=== PATIENT | male | born 1955 | race Caucasian/White ===

== ENCOUNTER 2023-10-21 09:03 | Emergency (ER) | payer MEDICARE, OTHER, SELFPAY ==
[2023-10-21] VITALS (8 sets, daily range): BP systolic 118–175; BP diastolic 77–94
--- NOTE | 2023-10-21 09:30 | ED.GENMED ---
Addendum entered and electronically signed by Tremaine Lazo PA-C 10/23/23 09:16:
Patient's initial Lyme titers was presumed positive. Western blot being performed. I contacted the patient and patient notes that he has never been treated for Lyme's disease in the past and continues to have body aches and a vague set of
symptoms. We discussed risk versus benefit of initiating antibiotics and at this time patient would ultimately like to start the antibiotic prior to the Western blot test being performed. Prescription for doxycycline 100 mg tablets x 14 days sent
to patient's [facility] pharmacy in [place]. He will follow-up with his primary care provider.
Original Note:
History of Present Illness
<Padmini Vaz PA-C - Last Filed: 10/21/23 14:58>
General
Chief Complaint: Blood Pressure Problem
Source: patient
Exam Limitations: none
Time Seen by Provider: 10/21/23 09:29
Nursing documentation reviewed up to this point in time: agreed with
Travel History
Have you had any contact with someone who has COVID-19?: No
Do you have any symptoms of coronavirus? Fever > 100 degrees, chills, cough, shortness of breath, sore throat, loss of taste or smell, muscle aches, or headache?: No
History of Present Illness
History of Present Illness:
This is a 68-year-old male with a past medical history of GERD, kidney disease, BPH presenting to emergency department today with concerns of high blood pressure, pain on the left side of his body, and URI symptoms. Patient states that he went to
[place] and was there for 30 days. He got back yesterday. Patient states that while on the trip, he had headaches, body aches diarrhea and respiratory symptoms. He states that the body aches are limited to the left side of his body, he feels
pain in his left shoulder, left forearm, left thigh, and left leg. 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 Patient finished the antibiotics a week and a half ago, however still has respiratory symptoms and
diarrhea. Patient also states that he has a headache and has been using Aleve every 12 hours for the past 2 weeks to try to relieve the headache. He also states that he has had bad sunburn on his abdomen on the trip that he reports has gotten
better but now his skin is blanching which is concerning to him. He also states that he has been feeling hot but has been afebrile when checking his temperature. He is also concerned that his blood pressure. He states that it has been elevated
recently. He states that his blood pressure is usually in the 120 range systolically. He states that he is most concerned right now about his elevated blood pressure. He takes a medication for blood pressure. Has not seen a primary care provider
around 2 years. He denies any chest pain, shortness of breath, sensory changes in one-sided body versus the other, neuropathic pain, difficulty ambulating.
Review of Systems
<Padmini Vaz PA-C - Last Filed: 10/21/23 14:58>
Review of Systems
Allergies reviewed?: Yes
All Other Systems: ROS reviewed and negative except as documented in HPI and ROS
Phy Exam
<Padmini Vaz PA-C - Last Filed: 10/21/23 14:58>
Physical Exam
Physical Exam:
General: Patient is well-appearing in no acute distress
Skin: Skin is warm and dry. On my exam, I see no signs of rash, cellulitis, excoriations, erythema.
Cardiac: Regular rate and rhythm, no murmurs
Pulm: Normal respiratory effort, no wheezes rales or rhonchi.
Abdomen: No abdominal rash, no abdominal tenderness, no rigidity.
Musculoskeletal: Patient has mild pain with passive range of motion of left shoulder, left elbow, and left knee. Patient is no tenderness palpation in the musculature of the left arm or left leg.
Course
<Padmini Vaz PA-C - Last Filed: 10/21/23 14:58>
Orders/Labs/Results
Orders:
Orders
10/21/23 10:04
COVID-19 Antigen Urgent
Source: Nasal Swab
Complete Blood Count/With Diff Urgent
Comprehensive Metabolic Panel Urgent
Creatine Phosphokinase Urgent
Comment: ADD ON
Lyme Progressive Urgent
Comment: ADD
Magnesium Urgent
Comment: ADD ON
Monotest Urgent
Comment: ADD
Influenza A+B Rapid Molecular Urgent
BOBBY Source: Nasal Swab
Specimen Description:
10/21/23 10:17
Electrocardiogram (*1) Urgent
Reason for Study: Hypertension, Benign
EKG- Treatment ONCE
10/21/23 11:18
Troponin I Urgent
10/21/23 11:53
CT Chest/abd/pelvis Angio W/wo Urgent
Comment:
Reason For Exam: CP/abdominal pain with swelling
10/21/23 11:54
Add On- LAB Urgent
Tests Added?: magnesium, CPK
10/21/23 14:21
Add On- LAB Urgent
Tests Added?: monotest, lyme progressive
Abnormal Lab Results
10/21/23
10:04
RBC 4.50 L 10^6/uL
(4.70-6.10)
Hgb 12.3 L g/dL
(13.0-18.0)
Hct 37.2 L %
(39.0-52.0)
MPV 10.6 H fL
(7.4-10.4)
Absolute Monos (auto) 0.8 H 10^3/uL
(0.1-0.6)
Glucose 100 H mg/dl
(70-99)
Creatine Kinase 231 H U/L
(55-170)
10/21/23 10:04
10/21/23 10:04
Vital Signs
Initial and Last Documented VS:
Initial Vital Signs
Temp Pulse Resp BP Pulse Ox
97.7 F 56 16 175/94 98
10/21/23 09:05 10/21/23 09:05 10/21/23 09:05 10/21/23 09:05 10/21/23 09:05
Last Documented Vital Signs
Temp Pulse Resp BP Pulse Ox
97.7 F 47 16 131/77 99
10/21/23 09:05 10/21/23 14:53 10/21/23 14:53 10/21/23 14:52 10/21/23 14:53
<Andre Keith MD - Last Filed: 10/21/23 16:21>
Orders/Labs/Results
Orders:
Orders
10/21/23 10:04
COVID-19 Antigen Urgent
Source: Nasal Swab
Complete Blood Count/With Diff Urgent
Comprehensive Metabolic Panel Urgent
Creatine Phosphokinase Urgent
Comment: ADD ON
Lyme Progressive Urgent
Comment: ADD
Magnesium Urgent
Comment: ADD ON
Monotest Urgent
Comment: ADD
Influenza A+B Rapid Molecular Urgent
BOBBY Source: Nasal Swab
Specimen Description:
10/21/23 10:17
Electrocardiogram (*1) Urgent
Reason for Study: Hypertension, Benign
EKG- Treatment ONCE
10/21/23 11:18
Troponin I Urgent
10/21/23 11:53
CT Chest/abd/pelvis Angio W/wo Urgent
Comment:
Reason For Exam: CP/abdominal pain with swelling
10/21/23 11:54
Add On- LAB Urgent
Tests Added?: magnesium, CPK
10/21/23 14:21
Add On- LAB Urgent
Tests Added?: monotest, lyme progressive
Abnormal Lab Results
10/21/23
10:04
RBC 4.50 L 10^6/uL
(4.70-6.10)
Hgb 12.3 L g/dL
(13.0-18.0)
Hct 37.2 L %
(39.0-52.0)
MPV 10.6 H fL
(7.4-10.4)
Absolute Monos (auto) 0.8 H 10^3/uL
(0.1-0.6)
Glucose 100 H mg/dl
(70-99)
Creatine Kinase 231 H U/L
(55-170)
10/21/23 10:04
10/21/23 10:04
Vital Signs
Initial and Last Documented VS:
Initial Vital Signs
Temp Pulse Resp BP Pulse Ox
97.7 F 56 16 175/94 98
10/21/23 09:05 10/21/23 09:05 10/21/23 09:05 10/21/23 09:05 10/21/23 09:05
Last Documented Vital Signs
Temp Pulse Resp BP Pulse Ox
97.7 F 47 16 131/77 99
10/21/23 09:05 10/21/23 14:53 10/21/23 14:53 10/21/23 14:52 10/21/23 14:53
<Padmini Vaz PA-C - Last Filed: 10/21/23 14:58>
MDM/Problems Addressed
Differential Diagnosis Includes:
High blood pressure�essential hypertension, whitecoat hypertension, renal artery stenosis, viral illness
URI symptoms--viral URI, pneumonia
left sided pain- musculoskeletal strain/sprain, pneumonia, rhabdo, aortic dissection,
MDM/Problems Addressed:
URI symptoms
left sided pain
HTN
Chronic conditions affecting care:
n/a
Acute Exacerbation and/or Progression of Chronic Illness:
n/a
<Padmini Vaz PA-C - Last Filed: 10/21/23 14:58>
*Pulse Oximetry
Patient hypoxic: no
*EKG
Interpreted by ED Provider?: Yes
EKG Intrepretation Date: 10/21/23
EKG Intrepretation Time: 14:47
Interpretation: abnormal
Comparison EKG: no comparison EKG present
Heart Rate: 41
Rate: bradycardiac
Rhythm: sinus
[place]: normal axis
Interval: normal interval and normal UT interval
QRS Pattern: normal QRS
Ischemia: no ischemia
*Test [employer] Intern Interpretation
Rate: bradycardiac
Interpretation: abnormal
Heart Rate: 48
Rhythm: sinus
*Critical Care Note
Total Time (30-74mins, 75-104mins- exclusive of procedures): Not Applicable
Data Reviewed
Review of Other/Old Records Reveals: Testing (Reviewed stress echo from 2020, which revealed no regional wall motion abnormalities and no evidence of myocardial ischemia with ejection fraction of 65 to 70%)
Prescriptions/Medications Considered But Not Given:
n/a
Further Testing Considered But Not Given:
n/a
Freddylt;Padmini Vaz PA-C - Last Filed: 10/21/23 14:58>
Patient Management
Escalation/DeEscalation of care consider admission/obs:
This is a 68-year-old male with past medical history of GERD, BPH presenting to emergency department today with concerns of high blood pressure, a possible rash, URI symptoms and diarrhea. He is most concerned about his blood pressure, he also has
left-sided arm pain. His physical exam was remarkable for unequal pulses and Dr. Keith's exam. Due to this and his pain, we obtained a CTA of the chest. CTA of the chest revealed no acute abnormalities. His CBC and CMP are unremarkable. While
here in the emergency department, his blood pressure returned to his baseline. He did have periods of bradycardia but patient states that this is baseline and his heart rate is always low. His troponin was normal. I suspect his URI symptoms and
diarrhea are part of his prolonged viral illness that he had while vacation this past week. He is concerned by rash but I do not see a rash on his abdomen, I suspect the color changes he notices as a result of his healing sunburn. Considering his
blood pressure return to baseline while here in emergency department, treatment is not indicated at this time. We advised him to follow-up with his primary care provider.
ED Attending Note
<Padmini Vaz PA-C - Last Filed: 10/21/23 14:58>
-
Portions of this chart may have been created with voice recognition software.� Occasional wrong word or��sound alike� substitutions may have occurred due to the inherent limitations of voice recognition software.
<Andre Keith MD - Last Filed: 10/21/23 16:21>
ED Attending Note
Patient seen and examined by attending physician: Yes
ED Attending Note:
Patient presents to ED secondary to 2-week history of intermittent headache, body ache, left-sided body pain, along with bilateral thigh pain, which started while he was on a cruise trip. Secondary to headache, patient decided to check his blood
pressure at home yesterday, which was elevated, unusual for the patient. Denies fever or chills. Denies shortness of breath. Patient is complaining of intermittent cough. Patient reports having taken a Z-Irwin while on vacation on a cruise,
without improvement in symptoms. Denies dizziness. Denies blurred vision. Denies difficulty with speech. Denies weakness. Denies previous history of similar symptoms. Patient has not seen his primary care physician for 2 years.
Physical Exam
General: no apparent distress, not acutely ill. afebrile
Head: nc/at. eomi
Neck: supple. no meningeal signs. no carotid bruit.
Heart: s1/s2 regular rate and rhythm, no murmur. equal radial pulses.
Lungs: no acute respiratory distress. clear bilaterally
Abdomen: normal bowel sounds. not tender.
Neuro: alert and oriented. no focal neurological deficits. normal speech.
Skin: no rash
Psychiatric: well kept. interactive and cooperative
Extremities: no edema. no calf tenderness. b/l anterior thigh, mildly tender to palpation, without ecchymosis/swelling/erythema.
Patient with an unremarkable workup in ED, including blood work and CT scanning. Blood pressure spontaneously improved during observation. History and exam consistent with likely viral illness, potentially giving patient number of nonspecific
symptoms. Otherwise, patient is afebrile, hemodynamically stable, and is without any neurological deficit, time of discharge. Patient will be advised to follow-up with his primary care physician for reevaluation.
Discharge Plan
Departure
Patient Disposition: Home (Routine Discharge)
Date of Disposition: 10/21/23
Time of Disposition: 14:37
Patient with high blood pressure during this ER visit?: Yes
Condition: Good
Discharge Problem:
high blood pressure
Instructions: High Blood Pressure (DC)
Referrals:
UNKNOWN - PT DOES,NOT KNOW [Family Provider] -
Activity Restrictions/Additional Instructions:
Please follow-up with your primary care provider this week.
Please continue to monitor your symptoms. Please continue to monitor your blood pressure.
Please return to the emergency department should you experience worsening pain, worsening symptoms, back pain, chest pain, shortness of breath, weakness, loss of sensation on one-sided body, jaw pain, or other concerning symptoms.
Interventions
Interventions:
*General Assessment Last Done: 10/21/23 12:39
ED- Fall Risk Assessment Last Done: 10/21/23 10:16
*ED COVID-19 Vaccine History Last Done: 10/21/23 09:05
*Nursing Disposition Last Done: 10/21/23 14:54
ED- Cardiac Assessment Last Done: 10/21/23 10:59
ED- Neurological Assessment Last Done: 10/21/23 10:16
ED- Pulmonary Assessment Last Done: 10/21/23 10:16
Discharge Date and Time
Discharge Date/Time: 10/21/23 14:55
[2023-10-21 10:40] LABS: COVID-19 Antigen Negative (Negative)
[2023-10-21 10:45] LABS: % Basophils 0.3 % (0-2); % Eosinophils 1.8 % (0-6); % Immature Granulocytes 0.2 % (0-0.5); % Lymphocytes 22.7 % (20.5-51.1); % Monocytes 8.8 % (1.7-9.3); % Neutrophils 66.2 % (42.2-75.2); Absolute Eosinophils 0.2 10^3/uL (0-0.7); Absolute Lymphocytes 2.1 10^3/uL (1.2-3.4); Absolute Monocytes 0.8 10^3/uL (0.1-0.6); Absolute Neutrophils 6.2 10^3/uL (1.4-6.5); Hematocrit 37.2 % (39.0-52.0); Hemoglobin 12.3 g/dL (13.0-18.0); Mean Corp Hgb Conc. 33.1 g/dL (33.0-37.0); Mean Corpuscular Hgb 27.3 pg (27.0-31.0); Mean Corpuscular Volume 82.7 fL (80.0-94.0); Mean Platelet Volume 10.6 fL (7.4-10.4); Nucleated Red Blood Cells % 0 % (-); Platelet Count 247 10^3/uL (130-400); Red Cell Dist. Width 13.5 % (11.5-14.5); White Blood Cell Count 9.3 10^3/uL (4.8-10.8)
[2023-10-21 10:50] LABS: ALT (SGPT) 21 U/L (0-50); AST (SGOT) 31 U/L (17-59); Albumin 4.1 g/dl (3.5-5.0); Alkaline Phosphatase 46 U/L (38-126); Blood Urea Nitrogen 15 mg/dl (9-20); Calcium 9.1 mg/dl (8.4-10.2); Carbon Dioxide 30 mmol/L (22-30); Chloride 106 mmol/L (98-107); Glucose 100 mg/dl (70-99); Sodium 139 mmol/L (135-145); Total Bilirubin 0.7 mg/dl (0.2-1.3); Total Protein 6.8 g/dl (6.3-8.2); eGFR > 60.00
[2023-10-21 11:45] LABS: Troponin I < 0.012 ng/ml
[2023-10-21 12:27] LABS: Creatine Phosphokinase 231 U/L (55-170); Magnesium 2.2 mg/dl (1.6-2.3)
[2023-10-21 16:21] LABS: Monotest Negative (Negative)
[2023-10-22 12:20] LABS: Lyme Antibody Screen, EIA Presump. Positive (Negative)
[2023-10-25 16:43] LABS: Lyme Ab Western Blot IgG Negative (Negative); Lyme Ab Western Blot IgM Negative (Negative)
== END 2023-10-21 14:55 | disposition home or self-care (01) ==
LOC: EMR 09:03
PROVIDERS: Physician Assistant; EMERGENCY PHYSICIAN Emergency Medicine
DX: I10 Essential (primary) hypertension (principal); R51.9 Headache, unspecified; R19.7 Diarrhea, unspecified; R21 Rash and other nonspecific skin eruption; M79.632 Pain in left forearm; M79.652 Pain in left thigh; M25.512 Pain in left shoulder; Z11.52 Encounter for screening for COVID-19; K21.9 Gastro-esophageal reflux disease without esophagitis; N40.0 Benign prostatic hyperplasia without lower urinary tract symptoms; Z88.8 Allergy status to other drugs, medicaments and biological substances
CPT/HCPCS: 99285; 71275; 74174; 80053; 82550; 83735; 84484; 85025; 86308; 86617; 86618; 87502; 87811; 93005; Q9967

== ENCOUNTER → 2025-08-01 09:47 | Outpatient (REF) | payer MEDICARE, OTHER, SELFPAY | LOC: PAVMRI 09:47 | PROVIDERS: ATTENDING PHYSICIAN Physical Medicine & Rehabilitation; FAMILY PHYSICIAN Family Medicine | DX: M54.12 Radiculopathy, cervical region (principal); S46.001A Unspecified injury of muscle(s) and tendon(s) of the rotator cuff of right shoulder, initial encounter | CPT/HCPCS: 73221 ==

== ENCOUNTER → 2025-08-20 08:29 | Outpatient (REF) | payer MEDICARE, OTHER, SELFPAY | LOC: HWRCS 08:29 | PROVIDERS: ATTENDING PHYSICIAN Internal Medicine Cardiovascular Disease; FAMILY PHYSICIAN Family Medicine | DX: I10 Essential (primary) hypertension (principal); R42 Dizziness and giddiness | CPT/HCPCS: 93306 ==

== ENCOUNTER 2025-09-03 09:22 | Outpatient (RCR) | payer MEDICARE, OTHER, SELFPAY ==
[2025-09-03 09:29] VITALS: BP 130/3
[2025-09-03 09:30] VITALS: BMI 25.1
[2025-09-03] MEDS: LEQVIO 284 MG SC (09:36)
== END 2025-09-06 11:01 | disposition home or self-care (01) ==
LOC: OID 09:22
PROVIDERS: ATTENDING PHYSICIAN Internal Medicine Cardiovascular Disease; FAMILY PHYSICIAN Family Medicine
DX: E78.5 Hyperlipidemia, unspecified (principal); Z78.9 Other specified health status
CPT/HCPCS: 96372; J1306